=== PATIENT | female | born 1955 ===

== ENCOUNTER 2022-08-08 06:10 | Day surgery (SDC) | payer OTHER ==
[~2022-08-08] VITALS: Ht 165.1 cm; Wt 60.3 kg
[~2022-08-08 06:10] MED LIST: SYNTHROID125 MCG PO
[2022-08-08] MEDS ORDERED: TYLENOL325 MG PO (11:56)
== END 2022-08-08 13:00 | disposition home or self-care (01) ==
LOC: CIR.AMB 06:10
PROVIDERS: ATTEND Obstetrics & Gynecology Gynecology
DX: R93.89 Abnormal findings on diagnostic imaging of other specified body structures (principal); N84.0 Polyp of corpus uteri; Z20.822 Contact with and (suspected) exposure to COVID-19; Z88.6 Allergy status to analgesic agent; E03.9 Hypothyroidism, unspecified